=== PATIENT | male | born 1960 ===

== ENCOUNTER 2023-12-11 12:58 | Outpatient (RCR) | payer MEDICARE, SELFPAY ==
--- NOTE | ~2023-12-11 | XR_ITS ---
EXAMINATION: XR FOOT, RIGHT CLINICAL INFORMATION: Nonhealing wound of the right foot. COMPARISON: None available. TECHNIQUE: AP, lateral, and oblique views of the right foot. FINDINGS: Bones are osteopenic. Mild to moderate osteoarthritis in the first and second TMT joints and at the talocrural joint. Bones are osteopenic. Mild osteoarthritis in the MTP and interphalangeal joints. There is a soft tissue wound at the plantar aspect of the fifth MTP joint. No findings of underlying osteomyelitis. XR/XR foot RT min 3V IMPRESSION: 1. Soft tissue wound at the plantar aspect of the fifth MTP joint. No evidence of underlying osteomyelitis. 2. 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
== END 2024-03-18 15:25 | disposition home or self-care (01) ==
LOC: HO.WCC 12:58
PROVIDERS: PCP Internal Medicine; Visit Provider Physician Assistant
DX: E11.621 Type 2 diabetes mellitus with foot ulcer (principal); L97.512 Non-pressure chronic ulcer of other part of right foot with fat layer exposed; L97.516 Non-pressure chronic ulcer of other part of right foot with bone involvement without evidence of necrosis; E11.22 Type 2 diabetes mellitus with diabetic chronic kidney disease; I12.0 Hypertensive chronic kidney disease with stage 5 chronic kidney disease or end stage renal disease; N18.5 Chronic kidney disease, stage 5; E11.40 Type 2 diabetes mellitus with diabetic neuropathy, unspecified; E11.51 Type 2 diabetes mellitus with diabetic peripheral angiopathy without gangrene; E11.319 Type 2 diabetes mellitus with unspecified diabetic retinopathy without macular edema; L84 Corns and callosities; H54.8 Legal blindness, as defined in USA; Z71.6 Tobacco abuse counseling; Z79.4 Long term (current) use of insulin; F17.210 Nicotine dependence, cigarettes, uncomplicated; Z89.422 Acquired absence of other left toe(s); Z86.718 Personal history of other venous thrombosis and embolism
CPT/HCPCS: 11042; 11043; 73630; 87070; 87073; 87077; 87186; 87205

== ENCOUNTER 2023-12-23 14:54 | Outpatient (REF) | payer MEDICARE, SELFPAY | END 2023-12-23 14:55 | disposition home or self-care (01) | LOC: HO.US 14:54 | PROVIDERS: Visit Provider Physician Assistant | DX: Z13.89 Encounter for screening for other disorder (principal) ==

== ENCOUNTER 2023-12-23 15:43 | Outpatient (REF) | payer MEDICARE, SELFPAY ==
--- NOTE | ~2023-12-23 | US_ITS ---
EXAMINATION: US BILATERAL LOWER EXTREMITY DUPLEX, RIGHT. CLINICAL INFORMATION: Peripheral vascular disease, chronic ulcer COMPARISON: None TECHNIQUE: Duplex Doppler techniques with wave form analysis and measurement of velocities in the common femoral, profunda femoral, superficial femoral, popliteal, tibial and peroneal arteries was performed at rest. 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 Tibial vessels patent.
== END 2023-12-23 15:44 | disposition home or self-care (01) ==
LOC: HO.US 15:43
PROVIDERS: Visit Provider Physician Assistant
DX: I73.9 Peripheral vascular disease, unspecified (principal); L97.512 Non-pressure chronic ulcer of other part of right foot with fat layer exposed
CPT/HCPCS: 93922; 93925